=== PATIENT | female | born 1980 | race Caucasian/White ===

== ENCOUNTER 2016-11-21 08:46 | Inpatient (IN) | payer OTHER ==
[2016-11-21] VITALS (8 sets, daily range): BP systolic 101–124; BP diastolic 54–71; PULSE 86–102; RESP 16–20; TEMP 97.5–98.5; O2SAT 97–100
[2016-11-21] MEDS ORDERED: SODIUM CHLOR 0.9% 1000 ML INJ 1,000 ML IV SCH ×2 (09:01)
[2016-11-21] MEDS ORDERED: BUPR150CR PO (09:04)
[2016-11-21] MEDS ORDERED: ONDANSETRON HCL 4 MG/2 ML VIAL IVP ONE (09:15)
[2016-11-21] MEDS ORDERED: DIPHTH/TETANUS/ACEL PERTUSSIS (BOOSTER) 0.5 ML VIAL/PFS IM ONE (09:15)
[2016-11-21] MEDS ORDERED: SODIUM CHLORIDE 0.9% FLUSH 10 ML FLUSH IVF PRN (09:15)
[2016-11-21] MEDS ORDERED: SODIUM CHLORIDE 0.9% FLUSH 10 ML FLUSH IV FLUSH PRN (09:15)
[2016-11-21 09:18] LABS: AUTOMATED NEUTROPHIL # 7.6 TH/MM3 (1.8-7.7); BASOPHIL % 0.4 % (0.0-2.0); EOSINOPHIL % 0.2 % (0.0-4.0); HEMATOCRIT 36.7 % (35.0-46.0); HEMO FLAGS DIFF FINAL; LYMPH % 10.9 % (9.0-44.0); MEAN CELL VOLUME 104.4 FL (80.0-100.0); MEAN CORPUSCULAR HEMOGLOBIN 35.9 PG (27.0-34.0); MEAN CORPUSCULAR HGB CONC 34.4 % (32.0-36.0); MONO % 6.5 % (0.0-8.0); PLATELET COUNT 212 TH/MM3 (150-450); RED BLOOD COUNT 3.52 MIL/MM3 (4.00-5.30); RED CELL DISTRIBUTION WIDTH 12.8 % (11.6-17.2); WHITE BLOOD COUNT 9.2 TH/MM3 (4.0-11.0)
[2016-11-21 09:28] LABS: APTT (PATIENT) 23.3 SEC (24.3-30.1); INTERNATIONAL NORMALIZED RATIO 0.9 RATIO; PROTHROMBIN TIME - PATIENT 10.2 SEC (9.8-11.6)
[2016-11-21 09:35] LABS: ALT (GPT) 50 U/L (10-53); ANION GAP 10 MEQ/L (5-15); AST (GOT) 52 U/L (15-37); BICARBONATE 23.2 MEQ/L (21.0-32.0); BLOOD UREA NITROGEN 7 MG/DL (7-18); CHLORIDE 111 MEQ/L (98-107); GLOMERULAR FILTRATION RATE 71 ML/MIN (>89); POTASSIUM 3.5 MEQ/L (3.5-5.1); SODIUM (NA) 144 MEQ/L (136-145)
[2016-11-21 09:39] LABS: ALKALINE PHOSPHATASE 43 U/L (45-117); BETA HCG QUANT LESS THAN 1 MIU/ML (0-5); TOTAL BILIRUBIN ADULT 0.3 MG/DL (0.2-1.0)
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
[2016-11-21 10:14] LABS: BLOOD, URINE SMALL (NEG); GLUCOSE,URINE 300 mg/dL (NEG); KETONE, URINE 10 mg/dL (NEG); NITRITE,URINE NEG (NEG); URINE COLOR YELLOW (YELLW/STRAW)
[2016-11-21 10:22] LABS: AMPHETAMINE, URINE NEG (NEG); BARBITURATES, URINE NEG (NEG); COCAINE, URINE POS (NEG)
[2016-11-21 10:23] LABS: MUCUS URINE OCC /lpf (OCC); RBC, URINE 0-3 /hpf (0-3); WBC, URINE 0-2 /hpf (0-5)
[2016-11-21 10:24] LABS: COMMENT (UR) CATH-CULT NOT IND; COMMENT2 (UR) CATH-CULT NOT IND; CULTURE IF INDICATED CATH CULTURE NOT IND
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
[2016-11-21] MEDS ORDERED: LORazepam 2 MG/ML VIAL IV PUSH ONE (10:45)
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
[2016-11-21] MEDS ORDERED: IOHEXOL 350 MG/ML 10 ML VIAL (for RAD DIAG) IV ONE ×2 (10:54→13:10)
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
[2016-11-21] MEDS ORDERED: MISCELLANEOUS NURSING INFORMATION XX SCH (12:45)
[2016-11-21] MEDS ORDERED: MAGNESIUM HYDROXIDE SUSP 30 ML CUP PO PRN (12:45)
[2016-11-21] MEDS ORDERED: ACETAMINOPHEN/HYDROcodone 325 MG/5 MG TAB PO PRN ×2 (12:45)
[2016-11-21] MEDS ORDERED: CHLORHEXIDINE GLUCONATE 2 % 1 PACK (2 CLOTHS) TOP PRN (12:45)
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
[2016-11-21] MEDS ORDERED: ZITHTAB PO (13:55)
[2016-11-21] MEDS ORDERED: MORPHINE SULFATE 4 MG/ML INJ IV PUSH ONE (14:15)
[2016-11-21] MEDS ORDERED: oxyCODONE/ACETAMINOPHEN 5 MG/325 MG TAB PO PRN (20:45)
[2016-11-21] MEDS: HYDROmorphone HCL PF 1 MG/ML VIAL IV PRN (20:47)
[2016-11-21] MEDS ORDERED: DOCUSATE SODIUM 100 MG CAP PO SCH (21:00)
[2016-11-21] MEDS: ONDANSETRON HCL 4 MG/2 ML VIAL IV PRN (22:14)
[2016-11-21] MEDS: oxyCODONE/ACETAMINOPHEN 10 MG/325 MG TAB PO PRN (22:19)
[2016-11-22] VITALS: BP 111/62; PULSE 78; RESP 18; TEMP 96.4; O2SAT 97
[2016-11-22] MEDS: ENOXAPARIN SODIUM 30 MG/0.3 ML SYRINGE SQ SCH ×3 (01:23→20:07)
[2016-11-22 04:00] VITALS: BP 119/73; PULSE 79; RESP 20; TEMP 95.5; O2SAT 98
[2016-11-22] MEDS ORDERED: CHLORHEXIDINE GLUCONATE 2 % 1 PACK (2 CLOTHS) TOP SCH (04:00)
[2016-11-22] MEDS: oxyCODONE/ACETAMINOPHEN 10 MG/325 MG TAB PO PRN ×5 (05:27→23:12)
[2016-11-22] MEDS: HYDROmorphone HCL PF 1 MG/ML VIAL IV PRN ×2 (06:59→11:10)
[2016-11-22 07:26] LABS: AUTOMATED NEUTROPHIL # 5.1 TH/MM3 (1.8-7.7); BASOPHIL % 0.3 % (0.0-2.0); EOSINOPHIL % 0.6 % (0.0-4.0); HEMATOCRIT 36.8 % (35.0-46.0); HEMO FLAGS DIFF FINAL; LYMPH % 14.6 % (9.0-44.0); MEAN CORPUSCULAR HEMOGLOBIN 35.4 PG (27.0-34.0); MEAN CORPUSCULAR HGB CONC 33.7 % (32.0-36.0); NEUT % 70.5 % (16.0-70.0); PLATELET COUNT 177 TH/MM3 (150-450); RED CELL DISTRIBUTION WIDTH 12.4 % (11.6-17.2); WHITE BLOOD COUNT 7.2 TH/MM3 (4.0-11.0)
[2016-11-22 07:57] LABS: POTASSIUM 3.7 MEQ/L (3.5-5.1)
[2016-11-22] MEDS: THIAMINE HCL 100 MG TAB PO SCH (08:41)
[2016-11-22] MEDS: buPROPion HCL 150 MG SUSTAINED RELEASE TAB PO SCH ×2 (08:41→20:05)
[2016-11-22] MEDS: MULTIVITAMINS/MINERALS THERAPEUTIC TAB PO SCH (08:41)
[2016-11-22] MEDS: FOLIC ACID 1 MG TAB PO SCH (08:41)
[2016-11-22] MEDS: FAMOTIDINE 20 MG TAB PO SCH ×2 (08:41→20:06)
[2016-11-22] MEDS: DOCUSATE SODIUM 50 MG/SENNA 8.6 MG TAB PO SCH ×2 (08:42→20:07)
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
[2016-11-22 08:45] VITALS: BP 123/60; PULSE 96; RESP 20; TEMP 96.8; O2SAT 96
[2016-11-22] MEDS: ONDANSETRON HCL 4 MG/2 ML VIAL IV PRN (09:37)
[2016-11-22] MEDS ORDERED: MISCELLANEOUS NURSING INFORMATION ONE (10:00)
[2016-11-22 12:00] VITALS: BP 112/72; PULSE 70; RESP 20; TEMP 97.4; O2SAT 97
[2016-11-22] MEDS: IBUPROFEN 800 MG TAB PO SCH ×2 (14:12→22:22)
[2016-11-22] MEDS: METHOCARBAMOL 500 MG TAB PO SCH ×2 (14:12→22:22)
[2016-11-22 15:00] VITALS: BP 116/70; PULSE 74; RESP 21; TEMP 97.4; O2SAT 97
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
[2016-11-22 20:59] VITALS: BP 123/71; PULSE 72; RESP 20; TEMP 98.5; O2SAT 99
[2016-11-22] MEDS ORDERED: diphenhydrAMINE HCL 50 MG/ML VIAL IV ONE (23:00)
[2016-11-23 00:12] VITALS: BP 118/70; PULSE 71; RESP 20; TEMP 96.6; O2SAT 99
[2016-11-23 04:05] VITALS: BP 102/62; PULSE 70; RESP 20; TEMP 96.8; O2SAT 98
[2016-11-23] MEDS: IBUPROFEN 800 MG TAB PO SCH (05:37)
[2016-11-23] MEDS: METHOCARBAMOL 500 MG TAB PO SCH (05:38)
[2016-11-23] MEDS: MULTIVITAMINS/MINERALS THERAPEUTIC TAB PO SCH (08:13)
[2016-11-23] MEDS: DOCUSATE SODIUM 50 MG/SENNA 8.6 MG TAB PO SCH (08:13)
[2016-11-23] MEDS: FOLIC ACID 1 MG TAB PO SCH (08:13)
[2016-11-23] MEDS: buPROPion HCL 150 MG SUSTAINED RELEASE TAB PO SCH (08:13)
[2016-11-23] MEDS: FAMOTIDINE 20 MG TAB PO SCH (08:13)
[2016-11-23] MEDS: THIAMINE HCL 100 MG TAB PO SCH (08:13)
[2016-11-23] MEDS: ENOXAPARIN SODIUM 30 MG/0.3 ML SYRINGE SQ SCH (08:14)
[2016-11-23] MEDS: oxyCODONE/ACETAMINOPHEN 10 MG/325 MG TAB PO PRN ×2 (08:14→12:00)
[2016-11-23 08:24] VITALS: BP 114/60; PULSE 70; RESP 18; TEMP 97.3; O2SAT 98
[2016-11-23] MEDS ORDERED: LACTULOSE SYRUP 20 GM/30 ML CUP PO SCH (09:00)
[2016-11-23] MEDS ORDERED: PERC5TAB12 PO (10:18)
[2016-11-23] MEDS ORDERED: ROBA500T PO (10:19)
[2016-11-23] MEDS ORDERED: BUPR150CR PO (10:20)
[2016-11-23 12:00] VITALS: BP 110/60; PULSE 93; RESP 18; TEMP 97.4; O2SAT 98
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
== END 2016-11-23 12:32 | disposition home or self-care (01) | DRG 552 ==
LOC: NEPC 08:46 → NEDA 11:42 → N05A 16:20
PROVIDERS: ADMIT Surgery; ATTEND Surgery
DX: S12.600A Unspecified displaced fracture of seventh cervical vertebra, initial encounter for closed fracture (principal); S27.321A Contusion of lung, unilateral, initial encounter; S22.32XA Fracture of one rib, left side, initial encounter for closed fracture; T14.8 Other injury of unspecified body region; F32.9 Major depressive disorder, single episode, unspecified; F41.9 Anxiety disorder, unspecified; F10.10 Alcohol abuse, uncomplicated; V43.62XA Car passenger injured in collision with other type car in traffic accident, initial encounter; Y92.410 Unspecified street and highway as the place of occurrence of the external cause; Y90.7 Blood alcohol level of 200-239 mg/100 ml; Z72.0 Tobacco use; Z88.1 Allergy status to other antibiotic agents
CPT/HCPCS: 70450; 70486; 71010; 71260; 71275; 72125; 72141; 73502; 73552; 73564; 74177; 80048; 80053; 80307; 81001; 83690; 84702; 84703; 85025; 85610; 85730; 90471; 90715; 94150; 96361; 96374; 96375; J1170; J1200; J1650; J2060; J2270; J2405; J7030; L0150; L0172; Q9967